=== PATIENT | male | born 1980 | race African-American/Black ===

== ENCOUNTER 2025-05-16 13:24 | Outpatient (REF) | payer BC, SELFPAY ==
[2025-05-16 18:30] LABS: MANUAL DIFF FLAG NO
[2025-05-16 19:14] LABS: Hemoglobin A1C 80.5067 umol/L
[2025-05-16 19:15] LABS: Alanine Aminotransferase 15 U/L (0-40); Albumin Level 4.2 g/dL (3.5-5.0); Alkaline Phosphatase 40 U/L (39-117); Anion Gap 10 (12-20); Aspartate Amino Transferase 29 U/L (5-37); Blood Urea Nitrogen 11 mg/dL (9-16); Calcium 9.4 mg/dL (8.4-10.2); Carbon Dioxide 29 mmol/L (22-29); Chloride 105 mmol/L (96-108); Cholesterol 168 mg/dL (<200); Estimated Glomerular Filt Rate > 60; HDL Cholesterol 38 mg/dL (>40); Magnesium 2.1 mg/dL (1.6-2.6); Potassium 4.0 mmol/L (3.3-5.1); Sodium 140 mmol/L (135-145); Total Protein 7.7 g/dL (6.5-8.0); Triglycerides 105 mg/dL (<150)
[2025-05-16 19:18] LABS: Hematocrit 45.4 % (42.0-52.0); Hemoglobin 14.7 g/dl (14.0-18.0); Imm Gran Abs Auto 0.03 X10*3/uL (0.00-0.03); Imm Gran Pct Auto 0.4 % (0.0-0.4); Lymphocytes Absolute Auto 2.7 X10*3/uL (1.2-4.9); Mean Corpuscular HGB Conc 32.4 g/dl (31.0-36.0); Mean Corpuscular Hemoglobin 28.7 pg (27.0-33.0); Mean Corpuscular Volume 88.7 fL (80.0-98.0); NRBC Abs Auto 0.000 X10*3/uL (0.0-0.012); NRBC Pct Auto 0.0 /100WBC (0.0-0.2); Platelet Count 176 X10*3/uL (160-400); Red Blood Count 5.12 X10*6/uL (4.60-5.80); White Blood Count 8.3 X10*3/uL (4.8-10.8)
[2025-05-16 19:32] LABS: Folate 5.8 ng/mL (> or = 4.0); Vitamin B12 486 pg/mL (200-900)
[2025-05-17 06:34] LABS: Syphilis Screen Nonreactive (Nonreactive)
[2025-05-17 07:00] LABS: HBS Num1 3.13 mIU/mL (0-7.99); HBsAGNum1 0.45 S/CO (0.00-0.99); HIV Num 1 0.06 S/CO (0.00-0.99); Hepatitis B Surface Antigen Negative (Negative); ~HepC Num1 0.23 S/CO (0.00-0.79); ~Hepatitis B Surface Antibody NONREACTIVE (Nonreactive); ~Hepatitis C Antibody Nonreactive (Nonreactive)
[2025-05-20 14:23] LABS: VITAMIN D (1,25 OH) D3 68 pg/mL; Vit D (1,25-Dihydroxy) Total 68 pg/mL (18-72); Vitamin D (1,25 OH) D2 <8 pg/mL
== END 2025-05-16 13:25 | disposition home or self-care (01) ==
LOC: HO.HKASLDS 13:24
PROVIDERS: PCP Student in an Organized Health Care Education/Training Program; Visit Provider Student in an Organized Health Care Education/Training Program
DX: Z13.9 Encounter for screening, unspecified (principal); F41.9 Anxiety disorder, unspecified; E11.9 Type 2 diabetes mellitus without complications; F10.11 Alcohol abuse, in remission; E66.812 Obesity, class 2; Z68.36 Body mass index [BMI] 36.0-36.9, adult
CPT/HCPCS: 36415; 80053; 80061; 82607; 82652; 82746; 83036; 83735; 84443; 85025; 86706; 86780; 86803; 87340; 87389; 96127

== ENCOUNTER 2025-05-16 13:24 | Outpatient (AMB) | payer BC, SELFPAY ==
--- NOTE | 2025-05-16 13:27 | A.OFFPC_ITS ---
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 Intake Note: New patient presents with mental health problems Cotton Machine Operator Required: No Accompanied by: Self / Same As Patient Allergies No Known Allergies Allergy (Verified 05/16/25 13:32) Tobacco use date assessed: 05/16/25 Dental Screening Dental Screen Date: 05/16/25 Did you have a dental visit in the last 12 months?: No Did you have a dental problem in the last 6 months where you did not have access to dental care?: No Was dental information given to patient?: Patient has dentist HPI HPI Comments History of Present Illness Details History of Present Illness The patient is a 44 year old individual presenting to [facility] care with a new primary care provider and for medication refills. 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 Due to the anxiety, the patient attended a 30-45 day mental health and substance use treatment program at [facility], where the patient was prescribed gabapentin 600 mg, hydroxyzine (Vistaril) 50 mg, and buspirone 20 mg. The patient's previous primary care physician refused to refill these prescriptions, necessitating a return to the program for another 30-day supply. The patient also takes Seroquel 200 mg at night, which in combination with gabapentin, helps with sleep. Type 2 Diabetes Mellitus and Obesity: The patient was diagnosed with type 2 diabetes with an initial A1c of approximately 11. The patient has been on Mounjaro (tirzepatide) for over a year, and the last A1c was 4.8. This medication has also facilitated weight loss from a starting weight of 290 pounds to a current weight of 249 pounds, with a goal weight of approximately 225 pounds. History of Bilateral Compartment Syndrome: The patient has a surgical history of bilateral upper extremity compartment syndrome. This occurred after a fall at home where the patient broke a toe and bruised a hip, rendering the patient unable to get off the floor for approximately 10 hours, from 8 p.m. to 6 a.m. The prolonged position on the floor led to the development of compartment syndrome in both arms, requiring surgical intervention which left scars on the bilateral triceps. History of Alcohol Abuse: The patient reports a history of problematic alcohol use. The patient has previously been in treatment for it and tried medications, which were not effective. The patient also tried AA meetings but did not find them helpful. The patient is now abstinent for approximately 10.5 months and manages this by staying busy. Surgical History: - Bilateral upper extremity fasciotomy f or compartment syndrome. Medications: - Buspirone 10 mg twice daily for anxiet y. - Gabapentin 600 mg three times daily fo r anxiety and sleep. - Hydroxyzine 50 mg twice daily for anxi ety. - Seroquel (quetiapine) 200 mg at bedtim e for sleep. - Mounjaro (tirzepatide) 12.5 mg subcuta neous injection once weekly for type 2 diabetes and weight loss. Social History: - Employment: The patient works in [employer] at a [employer] facility and has been in this role for 15 years. - Substance Use: Denies smoking. - Alcohol Use: Reports a history of prob lematic alcohol use but has been abstinent for approximately 10.5 months. Family History: - Grandfather had high blood pressure an d from it. - No family history of colon cancer at a young age. Diagnostic Results: - Hemoglobin A1c: 4.8% (most recent). - Hemoglobin A1c: Approximately 11 (at t armando of diagnosis). Past Medical History - Anxiety disorder - Type 2 diabetes mellitus - History of alcohol abuse - History of fall resulting in a broken fourth toe and bruised hip Health Maintenance - Order comprehensive laboratory studies , including a complete blood count, comprehensive metabolic panel, magnesium, calcium, hemoglobin A1c, HIV screen, lipid panel, syphilis screen, TSH, urinalysis, vitamin B12, folate, and vitamin D. - The patient has been instructed to hav e bloodwork drawn today. - Request medical records from the fabien villagomez's previous primary care provider and the [facility] facility. - Schedule a follow-up appointment in tw o weeks to review lab results and adjust the care plan as needed. - Discussed that colon cancer screening is recommended at age 45. [facility] Medical History (Updated 05/19/25 @ 11:42 by Stan Brush MD) Class 2 obesity History of alcohol abuse Diabetes type 2 Anxiety disorder Compartment syndrome Surgical History (Updated 05/16/25 @ 13:43 by Noah Ya CMA) H/O fasciotomy Family History (Updated 05/16/25 @ 13:37 by Noah Ya CMA) Maternal Grandfather Substance abuse Paternal Grandfather Hypertension Mother Diabetes Social History (Updated 05/16/25 @ 13:40 by Noah Ya CMA) Housing: House Alcohol intake: current Patient Tobacco Use Status: Never used Tobacco e-Cigarette/Vaping Use: Never Used Second Hand Smoke Exposure: No service: No Current occupational status: employed 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 1. Little interest or pleasure in doing things: not at all 2. Feeling down, depressed, or hopeless: not at all 3. Trouble falling or staying asleep, or sleeping too much: not at all 4. Feeling tired or having little energy: not at all 5. Poor appetite or overeating: not at all 6. Feeling bad about yourself - or that you are a failure or have let yourself or your family down: not at all 7. Trouble concentrating on things, such as reading the newspaper or watching television: not at all 8. Moving or speaking so slowly that other people could have noticed. Or the opposite - being so fidgety or restless that you have been moving around a lot more than usual: not at all 9. Thoughts that you would be better off or of hurting yourself in some way: not at all Total score: 0 Depression Screening Interpretation: Negative Depression Screening Done: Yes 06004 - PHQ-9 Billing: Yes Source: Developed by Drs. Baldemar Strickland, Elsy Quintero, Marcelo Chatman and colleagues, with an educational gurjit from [employer]. Thrive Questionnaire Date Thrive assessed: 05/16/25 I am a: Patient What is your living situation today?: I have a steady place to live Within the past 12 months, did the food you bought not last and you didn't have the money to get more?: Never true Within the past 12 months, did you worry whether your food would run out before you got money to buy more?: Never true Do you have trouble paying for medicines?: No Do you have trouble getting transportation to medical appointments?: No Do you have trouble paying your heating and electricity bill?: No Do you have trouble taking care of your child, family member or friend?: No Do you have trouble with day-to-day activities such as bathing, preparing meals, shopping, managing finances, etc.?: No Are you currently unemployed and looking for a job?: No Are you interested in more education?: No Please select the resources that you would like help with: None Currently or been in a relationship where the following occur: No concerns reported THRIVE Score: 0 AUDIT C Alcohol Use Questionnaire (AUDIT-C) 1. How often do you have a drink containing alcohol?: Never Total Score: 0 SUKHJINDER-7 AMB Questionnaire SUKHJINDER-7 Date SUKHJINDER - 7 assessed: 05/16/25 Feeling nervous, anxious, or on edge: 0 = Not at all Not being able to stop or control worryin = Not at all Worrying too much about different things: 0 = Not at all Trouble relaxin = Not at all Being so restless that it is hard to sit still: 0 = Not at all Becoming easily annoyed or irritable: 0 = Not at all Feeling afraid as if something awful might happen: 0 = Not at all Total SUKHJINDER-7 score (0-4 normal; 5-9 mild; 10-14 moderate; 15-21 severe): 0 Source: Developed by Drs. Baldemar Strickland, Elsy Quintero, Marcelo Chatman and colleagues, with an educational gurjit from [employer]. SUKHJINDER-7 Assessment Billing SUKHJINDER-7 Assessment Tool: SUKHJINDER-7 Assessment 21586 Review of Systems Narrative Review of Systems - General: Reports significant weight loss. - Psychiatric: Reports history of severe anxiety attacks. - Sleep: Reports improved sleep with medication. - Musculoskeletal: Denies any current pain. - Cardiovascular: Denies swelling in the legs. - Genitourinary: Reports normal urinary function. - Allergies: Denies any known allergies. 10-point ROS reviewed and negative except as noted in HPI Physical exam (Primary Care) Vital Signs: Last Vital Signs Temp 98.2 F 05/16/25 13:37 Pulse 82 05/16/25 13:37 Resp 16 05/16/25 13:37 BP 130/74 05/16/25 13:37 Pulse Ox 96 05/16/25 13:37 Oxygen Delivery Method Room Air 05/16/25 13:37 BMI result Body Mass Index 36.8 Tobacco/Smoking Status: Tobacco use Status Tobacco use date assessed 05/16/25 05/16/25 13:39 Patient Tobacco Use Status Never used Tobacco 05/16/25 13:40 e-Cigarette/Vaping Use Never Used 05/16/25 13:39 PHQ-9: PHQ-9 Score PHQ-9: Total score 0 05/16/25 13:40 Depression Screening Interpretation: Negative Thrive Assessment: Date of Thrive Assessment Date Thrive assessed 05/16/25 05/16/25 13:29 Currently or been in a relationship where the following occur: No concerns reported Narrative Physical Exam General: Well-appearing, in no acute distress. Vital signs: Within normal limits. HEENT: Normocephalic, atraumatic. PERRLA, EOMI. Conjunctiva clear, sclera anicteric. Oropharynx clear, mucous membranes moist. TMs intact bilaterally. Neck: Supple, no lymphadenopathy, no thyromegaly, no JVD or carotid bruits. Cardiovascular: RRR, normal S1/S2, no murmurs, rubs, or gallops. Peripheral pulses 2+ and symmetric. No edema. Respiratory: Lungs clear to auscultation bilaterally, no wheezes, rales, or rhonchi. Normal effort. Abdomen: Soft, non-tender, non-distended. Normoactive bowel sounds. No hepatosplenomegaly, no masses. MSK: Full range of motion, no joint swelling or deformity. Normal gait. Skin: Warm, dry, intact. No rashes, lesions, or pallor. Neuro: Alert and oriented x3. Cranial nerves II-XII intact. Strength 5/5 thro ughout. Sensation intact. Reflexes 2+ symmetric. Normal coordination and gait. Psych: Appropriate mood and affect. Normal judgment and insight. Coding Level of Care Code New Pt Level 4 (11404) Diagnoses Anxiety disorder F41.9 Diabetes type 2 E11.9 History of alcohol abuse F10.11 Class 2 obesity E66.812 Additional Codes SUKHJINDER-7 Assessment Billing - SUKHJINDER-7 Assessment Tool: SUKHJINDER-7 Assessment 51701 ([id number]) PHQ-9 - 02423 - PHQ-9 Billing: Yes ([id number]) Assessment & Plan Assessment & Plan (1) Anxiety disorder: Code(s): F41.9 - Anxiety disorder, unspecified Category: Medical (2) Diabetes type 2: Code(s): E11.9 - Type 2 diabetes mellitus without complications Category: Medical (3) History of alcohol abuse: Code(s): F10.11 - Alcohol abuse, in remission Category: Medical (4) Class 2 obesity: Code(s): E66.812 - Obesity, class 2 Category: Medical Plan Consent The patient provided verbal consent for comprehensive lab work after a discussion of the testing plan. The patient also consented to the release of me dical records from the previous primary care provider and the [facility] facility. Patient was informed and verbally consented to the use of an ambient scribe for clinic note documentation during this visit. Plan 1. Anxiety Disorder - Continue current medications for anxiety management. - Refill buspirone for a 3-month supply. - Refill gabapentin for a 3-month supply. - Refill hydroxyzine for a 3-month supply. - Refill Seroquel 200 mg for a 3-month supply. - The patient will continue to utilize mental health services provided through the patient's job at [employer] [facility] as needed. 2. Type 2 Diabetes Mellitus / Obesity - Given the excellent glycemic control with an A1c of 4.8, the patient will continue Mounjaro (tirzepatide). - To support further weight loss towards the patient's goal of 225 pounds, the dose of tirzepatide will be increased from 12.5 mg to 15 mg weekly. - The prescription for tirzepatide 15 mg will be sent to the [facility] in [place]. Discussion Notes I discussed with the patient that I would be taking over as the patient's primary care provider. I explained the importance of obtaining medical records from the patient's previous providers to ensure continuity of care and had the patient sign release forms. We reviewed the current medication list, and I confirmed that I would refill the prescriptions for anxiety (buspirone, gabapentin, hydroxyzine, Seroquel). We also discussed the Mounjaro (tirzepatide) for type 2 diabetes and weight management, and I agreed to the patient's request to increase the dose to 15 mg weekly to aid in reaching the patient's weight goal. I outlined the plan to order a comprehensive set of baseline labs and instructed the patient to have them drawn today. Finally, I advised the patient to schedule a follow-up appointment in two weeks to review the lab results. Patient Instructions - Please sign the release of information forms so we can request your medical records from your previous doctor and the [facility] facility. - Go to the lab to have your blood drawn today. - I have sent 3-month refills for your buspirone, gabapentin, hydroxyzine, and Seroquel to your pharmacy. - I have increased your Mounjaro (tirzepatide) dose to 15 mg once a week and sent the prescription to the [facility] in [place]. - Schedule a follow-up appointment to see me in two weeks to go over your lab results. Medical Decision Making The patient is a 44-year-old individual presenting to establish care after the previous PCP was unwilling to continue necessary medications. The primary concerns are management of anxiety and type 2 diabetes with associated obesity. For anxiety, the patient is on a stable, multimodal regimen (buspirone, gabapentin, hydroxyzine, Seroquel) initiated by a mental health facility. Given the patient reports benefit and the non-controlled nature of these medications, it is clinically appropriate to continue them to ensure stability while awaiting formal records. The patient has established access to specialized care via the patient's employer, which the patient prefers to maintain. Regarding type 2 diabetes, the patient has achieved remission with a recent HbA1c of 4.8 on tirzepatide 12.5 mg weekly, which also addresses the patient's obesity. The patient desires further weight loss, and an increase to the 15 mg dose of tirzepatide is a logical next step to support this goal. A comprehensive panel of labs was ordered to establish a baseline for this new patient, assess for any medication side effects, and monitor metabolic health. A two-week follow-up is scheduled to review these results and make any necessary adjustments to the treatment plan. Total Time Statement 30 min Total time spent caring for the patient today includes pre-visit chart review, documentation, review of laboratory and diagnostic imaging results, medication reconciliation, medically necessary evaluation, counseling on diagnoses, care coordination, ordering appropriate tests and medications, review of tests performed by other providers, reporting test results to the patient, and communication with other healthcare providers. Orders: Orders Complete Blood Count Auto Diff 05/16/25 Z13.9 - Encounter for screening, unspecified Syphilis Screen 05/16/25 Z13.9 - Encounter for screening, unspecified Hepatitis C Antibody 05/16/25 Z13.9 - Encounter for screening, unspecified UA CC w/rflx Micro + Cult 05/16/25 Z13.9 - Encounter for screening, unspecified Lipid Panel 05/16/25 Z13.9 - Encounter for screening, unspecified Vitamin B12 and Folate 05/16/25 Z13.9 - Encounter for screening, unspecified Hemoglobin A1c 05/16/25 Z13.9 - Encounter for screening, unspecified Hepatitis B Surface Antigen 05/16/25 Z13.9 - Encounter for screening, unspecified Comprehensive Met. Panel 05/16/25 Z13.9 - Encounter for screening, unspecified TSH reflex Free T4 05/16/25 Z13.9 - Encounter for screening, unspecified CT NG by PCR Urine 05/16/25 Z13.9 - Encounter for screening, unspecified HIV Ab/Ag 05/16/25 Z13.9 - Encounter for screening, unspecified Magnesium 05/16/25 Z13.9 - Encounter for screening, unspecified Vitamin D 1,25 dihydroxy 05/16/25 Z13.9 - Encounter for screening, unspecified Hepatitis B Surface Antibody 05/16/25 Z13.9 - Encounter for screening, unspecified Medications: New gabapentin 600 mg PO TID 240 tabs 0RF tirzepatide (Mounjaro) 15 mg (0.5 mL) subcut QWEEK 2 mL 0RF buspirone 10 mg PO BID 180 tabs 0RF hydroxyzine pamoate 50 mg PO BID 180 caps 0RF quetiapine (Seroquel) 200 mg PO BEDTIME 90 tabs 0RF
[2025-05-16 13:37] VITALS: BP 130/74; PULSE 82; RESP 16; TEMP 36.8; O2SAT 96; BMI 36.8
--- OUTSIDE RECORDS SUMMARY | 2025-05-16 15:57 | XMS_ITS | Clinical Summary ---
Author Organization [facility] Address [address] [place] [address] Care Team Providers Care Independent Jeweler Name Role Phone Ilya Maloney MD Primary Care Provider [phone] Social History Tobacco Use Types Packs/Day Years Used Date Smoking Tobacco: Never Assessed Sex and Gender Information Value Date Recorded Sex Assigned at Not on file Legal Sex Male 12:17 PM EDT Gender Identity Not on file Sexual Orientation Not on file Plan of Treatment Health Maintenance Due Date Last Done Comments Hepatitis C Screening 1981 DTaP/Tdap/Td (1 - Tdap) 1999 Hep B (1 of 3 - 19+ 3-dose series) 2000 COVID-19 Vaccine (1 - 2024-2 6 season) 2025 Influenza (#1) 2025 Zoster (Shingrix) (1 of 2) 2031 Chest Imaging Discontinued 12/03/2024, 03/29/2022, 03/29/2022 HPV Vaccine (No Doses Required) Completed Hep A Aged Out No longer eligi ble based on patient's age to complete this topic Hib Aged Out No longer eligi ble based on patient's age to complete this topic Meningococcal ACWY Aged Out No longer eligible based on patient's age to complete this topic Pneumococcal Aged Out No longer eligi ble based on patient's age to complete this topic Care Teams Independent Jeweler Relationship Specialty Start Date End Date Ilya Maloney MD [address] [place] [id number] PCP - General 01/18/23
--- OUTSIDE RECORDS SUMMARY | 2025-05-16 15:57 | XMS_ITS | Clinical Summary ---
Author Organization [facility] Address [address] [id number] Care Team Providers Care After School Program Director Name Role Phone Kaden Alamo MD Primary Care Provider [phone] Allergies No known active allergies Social History Tobacco Use Types Packs/Day Years Used Date Smoking Tobacco: Never Smokeless Tobacco: Never Tobacco Cessation:Counseling Given: Not Answered Alcohol Use Standard Drinks/Week Comments Yes 0 (1 standard drink = 0.6 oz pur e alcohol) 24 hours sober Sex and Gender Information Value Date Recorded Sex Assigned at Not on file Legal Sex Male 3:10 AM EDT Gender Identity Not on file Sexual Orientation Not on file Last Filed Vital Signs Vital Sign Reading Time Taken Comments Blood Pressure 150/100 03/29/2022 1:18 PM EDT Pulse 112 03/29/2022 1:18 PM EDT Temperature 36.9 C (98.4 F) 03/29/2022 3:32 AM EDT Respiratory Rate 18 03/29/2022 1:18 PM EDT Oxygen Saturation 99% 03/29/2022 10:10 AM EDT Inhaled Oxygen Concentration - - Weight 117.9 kg (260 lb) 03/29/2022 3:32 AM EDT Height 177.8 cm (5' 10 ) 03/29/2022 3:32 AM EDT Body Mass Index 37.31 03/29/2022 3:32 AM EDT Plan of Treatment Health Maintenance Due Date Last Done Comments HIV Screening 1981 Varicella Vaccines (1 of 2 - 13+ 2-dose series) 1994 Hepatitis B Vaccines (1 of 3 - 19+ 3-dose series) 2000 DTaP,Tdap,and Td Vaccines (1 - Tdap) 2003 Alcohol/Substance Use Screening 06/14/2024 Influenza Vaccine (#1) 2025 COVID-19 Vaccine (1 - 2024-2 6 season) 2025 Pneumococcal Vaccine: Pediat bryanna (0-5 Years) and At-Risk Patients (6-50 Years) Aged Out No longer eligible b ased on patient's age to complete this topic Insurance BCBS OUT OF STATE PPO Care Teams After School Program Director Relationship Specialty Start Date End Date Kaden Alamo MD [address] [place] [id number] PCP - General Internal Medicine 03/28/22
--- OUTSIDE RECORDS SUMMARY | 2025-05-16 15:57 | XMS_ITS | Patient Health Record ---
Author Organization [facility] Address [address] [place] [address] Care Team Providers Care Marine Steward Name Role Phone Marcello Alamo MD Primary Care Provider Unavail able Abraham Sevilla Unavailable [phone] Allergies No Known Allergies Reason For Referral No Information Medications Medication SIG (Take, Route, Frequency, Duration) Notes Start Date End Date Status Lisinopril 20 MG 1 tablet Orally Once a day; Duration: 30 day(s) Active metFORMIN HCl 500 MG 1 tablet with a emanuel l Orally Once a day; Duration: 30 day(s) Active Escitalopram Oxalate 5 MG 1 tablet Orall y Once a day; Duration: 30 day(s) Active hydroCHLOROthiazide 25 MG 1 tablet in th e morning Orally Once a day; Duration: 30 day(s) Active Work Note . . . patient must be allowed to wear athletic shoes to work until further notice Active Voltaren 1 % as directed Externally Active Naltrexone HCl 50 MG 1 tablet Orally Onc e a day; Duration: 30 day(s) Active Immunizations Vaccine Route Administration Date Status Comme nts COVID-19 Mahendra & Mahendra/Kameron Unknown 11/14/2020 A dministered Social History Tobacco Use: Social History Observation Description Date Details (start date - stop date) Never Smoker NA - NA Tobacco Use/Smoking Question Answer Notes Are you a: nonsmoker Additional Findings: Tobacco Non-User Current no n-smoker Alcohol Screen Question Answer Notes Did you have a drink contain ing alcohol in the past year? Yes How often did you have a dri nk containing alcohol in the past year? 4 or more times a week (4 points) Points 4 Interpretation Positive Tobacco use other than smoking: Question Answer Notes Are you an other tobacco user? No Problems Problem Type SNOMED Code ICD Code Onset Dates Problem Status W/U Status Risk Notes Problem Acquired hallux valgus (36918217) Hallux valgus (acquired), left foot (M20.12) Active confirmed Problem Acquired hallux valgus (65708311) Hallux valgus (acquired), right foot (M20.11) Active confirmed Problem Acquired hallux rigidus (7936679) Hallux rigidus, left foot (M20.22) Active confirmed Problem Acquired hallux valgus (65918809) Hallux valgus (acquired), right foot (M20.11) Active confirmed Problem Acquired hallux rigidus (5908633) Hallux rigidus, right foot (M20.21) Active confirmed Plan Of Treatment Pending Test Test Name Order Date X ray : Foot, left 3V 07/30/2020 X ray : Foot, right 3V 07/30/2020 [id number], [id number], JOINT/BURSA 0 12/09/2020 Insurance Providers Payer Name Payer Address Payer Phone Subscriber Number Group Number Insured Name Patient Relationship to Insured Coverage Start Date Coverage End Date [facility] [address] [place] [address] [id number] Matty Guerrero Self - patient is the insured Medical (General) History Medical History History ICD Code Broken bones Chicken pox Diabetes mellitus High blood pressure Surgical History Surgery Date(Month/Year) hernia 2008 Compartment syndrome 03/05/20
--- OUTSIDE RECORDS SUMMARY | 2025-05-16 15:57 | XMS_ITS | Clinical Summary ---
Author Organization [facility] Address [address] [place] [address] Care Team Providers Care Mercerizer Machine Operator Name Role Phone Marcello Alamo MD Primary Care Provider [phone] Medical History Medical History Date Comments HTN (hypertension) DX:HTN (hyper tension) Diabetes (CMS/HCC V24, CMS/HCC V28) DX:Diabetes (HCC) Atrial fibrillation (CMS/HCC V24, CMS/HCC V28) DX:Atrial fibrillation (HCC) Family History Relation Name Status Comments Father Alive Mother Alive Social History Tobacco Use Types Packs/Day Years Used Date Smoking Tobacco: Never Smokeless Tobacco: Never Alcohol Use Standard Drinks/Week Comments No 0 (1 standard drink = 0.6 oz pur e alcohol) Sex and Gender Information Value Date Recorded Sex Assigned at Not on file Legal Sex Male 10:41 AM EST Gender Identity Not on file Sexual Orientation Not on file Obstetrics History Plan of Treatment Health Maintenance Due Date Last Done Comments DTaP,Tdap,and Td Vaccines (1 - Tdap) 2000 Hepatitis B Vaccines (1 of 3 - 19+ 3-dose series) 2000 HPV Vaccines (1 - 3-dose SCD M series) 2008 Cholesterol Screening (Lipid Panel) 05/12/2022 HIV Screening 05/12/2022 Hepatitis C Screening 05/12/2022 Social Influencers of Health Screening 05/12/2022 Depression Screening 06/14/2024 COVID-19 Vaccine ( - 2024-2 6 season) 2025 Influenza Vaccine (#1) 2025 RSV Immunization Adult Patie nts (1 - 1-dose 75+ series) 2056 HIB Vaccines Aged Out No longer eligi ble based on patient's age to complete this topic Hepatitis A Vaccines Aged Out No long er eligible based on patient's age to complete this topic IPV Vaccines Aged Out No longer eligi ble based on patient's age to complete this topic MMR Vaccines Aged Out No longer eligi ble based on patient's age to complete this topic Meningococcal ACWY Vaccine Aged Out N o longer eligible based on patient's age to complete this topic Meningococcal B Vaccine Aged Out No l onger eligible based on patient's age to complete this topic Pneumococcal Vaccine: Pediat rics (0 to 5 Years) and At-Risk Patients (6 to 49 Years) Aged Out No longer eligible b ased on patient's age to complete this topic RSV Immunization Patients Un lynn 20 months Aged Out No longer eligible b ased on patient's age to complete this topic Varicella Vaccines Aged Out No longer eligible based on patient's age to complete this topic Care Teams Mercerizer Machine Operator Relationship Specialty Start Date End Date Marcello Alamo MD PCP - General Internal Medicine 03/11/20
== END 2025-05-16 14:11 | disposition home or self-care (01) ==
LOC: HO.HMCFMS 13:25
PROVIDERS: PCP Student in an Organized Health Care Education/Training Program; Visit Provider Student in an Organized Health Care Education/Training Program
DX: F41.9 Anxiety disorder, unspecified (principal); E11.9 Type 2 diabetes mellitus without complications; F10.11 Alcohol abuse, in remission; E66.812 Obesity, class 2

== ENCOUNTER 2025-05-31 10:53 | Outpatient (AMB) | payer BC, SELFPAY ==
--- NOTE | 2025-05-31 10:55 | A.OFFPC_ITS ---
Vital Signs 05/31/25 10:58 Height 5 ft 9 in Weight 239 lb 2 oz BMI 35.3 BP 119/72 Blood Pressure Location Lt brachial Position Sitting Respiration 16 Pulse 78 Pulse Source Pulse Oximeter Temp 97.5 F Temp Source Oral Pulse Oximetry (%) 99 Oxygen Delivery Method Room Air Intake Visit Reasons: 2 wk - lab review Intake Note: Patient present for lab review. Accompanied by: Self / Same As Patient Allergies No Known Allergies Allergy (Verified 05/31/25 10:57) Medication List - Last Reconciled 06/02/25 by Stan Brush MD buspirone 10 mg PO BID gabapentin 600 mg PO TID hydroxyzine pamoate 50 mg PO BID quetiapine (Seroquel) 200 mg PO BEDTIME tirzepatide (Mounjaro) 15 mg (0.5 mL) subcut QWEEK Tobacco use date assessed: 05/16/25 Dental Screening Dental Screen Date: 05/16/25 HPI HPI Comments History of Present Illness Details History of Present Illness The patient is a 45 year old male presenting for a review of recent lab results. Elevated LDL cholesterol: Recent lab work showed an LDL cholesterol level of 109, which is above the targ et of less than 100. His total cholesterol was 160 and triglycerides were 105. The patient reports a diet that includes cheese. Mild hyperbilirubinemia: A recent lab finding indicated a total bilirubin level of 1.6, which is slightly elevated. His other liver enzymes were noted to be normal. Medications: - Tirzepatide - Seroquel (quetiapine) - Hydroxyzine - Gabapentin - Buspirone Social History: - Diet: The patient's diet includes ganesh se and eggs, which were discussed as potential contributors to his elevated LDL cholesterol. Diagnostic Results: - Complete Blood Count: White blood cell s, red blood cells, hemoglobin, and platelets are normal. - Comprehensive Metabolic Panel: Sodium, potassium, and renal function are normal. - Glucose: Random glucose and Hemoglobin A1c (5.0) are normal, indicating no prediabetes or diabetes. - Liver Function Tests: Total bilirubin is slightly elevated at 1.6; other liver enzymes are normal. - Electrolytes: Calcium and magnesium ar e normal. - Lipid Panel: Triglycerides are 105 (go al <150), total cholesterol is 160 (goal <200), and LDL cholesterol is 109 (goal <100). - Vitamins: Vitamin B12 is 466 (normal r kaushal 200-900) and Vitamin D is normal. - Thyroid function: Normal. - Folate: Normal. - Infectious Disease Screening: Syphilis , hepatitis B, hepatitis C, and HIV tests are negative. Past Medical History Health Maintenance - The patient's lab work was reviewed, w ith results indicating he is not prediabetic or diabetic. - Screening for syphilis, hepatitis B, h epatitis C, and HIV were negative. - Dietary modifications were discussed t o manage a mildly elevated LDL cholesterol level, including reducing intake of cheese and eggs. 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 Current occupational exposures/hazards: No Cognitive needs: No Hearing needs: No Vision needs: No Questionnaire Thrive Questionnaire Date Thrive assessed: 05/16/25 I am a: Patient What is your living situation today?: I have a steady place to live Within the past 12 months, did the food you bought not last and you didn't have the money to get more?: Never true Within the past 12 months, did you worry whether your food would run out before you got money to buy more?: Never true Do you have trouble paying for medicines?: No Do you have trouble getting transportation to medical appointments?: No Do you have trouble paying your heating and electricity bill?: No Do you have trouble taking care of your child, family member or friend?: No Do you have trouble with day-to-day activities such as bathing, preparing meals, shopping, managing finances, etc.?: No Are you currently unemployed and looking for a job?: No Are you interested in more education?: No Please select the resources that you would like help with: None Currently or been in a relationship where the following occur: No concerns reported THRIVE Score: 0 SUKHJINDER-7 AMB Questionnaire SUKHJINDER-7 Date SUKHJINDER - 7 assessed: 05/16/25 Source: Developed by Drs. Baldemar Strickland, Elsy Quintero, Marcelo Chatman and colleagues, with an educational gurjit from [employer] (formerly [employer]). Review of Systems Narrative Review of Systems - General: Denies any concerns. 10-point ROS reviewed and negative except as noted in HPI Physical exam (Primary Care) Vital Signs: Last Vital Signs Temp 97.5 F 05/31/25 10:58 Pulse 78 05/31/25 10:58 Resp 16 05/31/25 10:58 BP 119/72 05/31/25 10:58 Pulse Ox 99 05/31/25 10:58 Oxygen Delivery Method Room Air 05/31/25 10:58 BMI result Body Mass Index 35.3 Tobacco/Smoking Status: Tobacco use Status Tobacco use date assessed 05/16/25 05/31/25 10:57 Patient Tobacco Use Status Never used Tobacco 05/31/25 10:58 e-Cigarette/Vaping Use Never Used 05/31/25 10:58 Thrive Assessment: Date of Thrive Assessment Date Thrive assessed 05/16/25 05/31/25 10:57 Currently or been in a relationship where the following occur: No concerns reported Narrative Physical Exam General: Well-appearing, in no acute distress. Vital signs: Within normal limits. HEENT: Normocephalic, atraumatic. PERRLA, EOMI. Conjunctiva clear, sclera anicteric. Oropharynx clear, mucous membranes moist. TMs intact bilaterally. Neck: Supple, no lymphadenopathy, no thyromegaly, no JVD or carotid bruits. Cardiovascular: RRR, normal S1/S2, no murmurs, rubs, or gallops. Peripheral pulses 2+ and symmetric. No edema. Respiratory: Lungs clear to auscultation bilaterally, no wheezes, rales, or rhonchi. Normal effort. Abdomen: Soft, non-tender, non-distended. Normoactive bowel sounds. No hepatosplenomegaly, no masses. MSK: Full range of motion, no joint swelling or deformity. Normal gait. Skin: Warm, dry, intact. No rashes, lesions, or pallor. Neuro: Alert and oriented x3. Cranial nerves II-XII intact. Strength 5/5 throughout. Sensation intact. Reflexes 2+ symmetric. Normal coordination and gait. Psych: Appropriate mood and affect. Normal judgment and insight. Patient is currently on tirzepatide, Seroquel, hydroxyzine, gabapentin, and buspirone. Coding Level of Care Code Est Pt Level 3 (72284) Add On Problem Visit Only Diagnoses Elevated LDL cholesterol level E78.00 Hyperbilirubinemia E80.6 Anxiety disorder F41.9 Class 2 obesity E66.812 Assessment & Plan Assessment & Plan (1) Elevated LDL cholesterol level: Code(s): E78.00 - Pure hypercholesterolemia, unspecified Category: Medical (2) Hyperbilirubinemia: Code(s): E80.6 - Other disorders of bilirubin metabolism Category: Medical (3) Anxiety disorder: Code(s): F41.9 - Anxiety disorder, unspecified Category: Medical (4) Class 2 obesity: Code(s): E66.812 - Obesity, class 2 Category: Medical Plan Consent Patient was informed and verbally consented to the use of an ambient scribe for clinic note documentation during this visit. Plan 1. Mild Hyperbilirubinemia - The patient's total bilirubin was noted to be slightly elevated at 1.6. - As other liver enzymes are normal, this finding is not immediately concerning. - Plan is to repeat liver function tests in six months for monitoring. 2. Elevated Ldl Cholesterol - The patient's LDL cholesterol is 109, which is slightly above the goal of under 100. - Recommended dietary modifications, specifically reducing intake of cheese and eggs, to help lower the LDL level. Discussion Notes I reviewed the patient's recent lab results with him. I informed him that his complete blood count, electrolytes, renal function, glucose, and hemoglobin A1c were all normal. I noted a slightly elevated total bilirubin of 1.6 but reassured him that this is not concerning since other liver enzymes are normal, and we will repeat the lab in six months. We discussed his LDL cholesterol of 109, which is slightly above the goal, and I recommended dietary changes, such as reducing cheese and egg intake. I confirmed that his vitamin levels, thyroid function, and infectious disease screenings were all normal. The patient confirmed he is continuing his current medications, and he denied having any questions or concerns. Patient Instructions - Your lab results are mostly normal. - Your bad cholesterol (LDL) is slightly high. - Please try to reduce your intake of cheese and eggs to help lower this. - One of your liver tests (bilirubin) was slightly elevated. - This is not a concern right now, and we will recheck it with a blood test in six months. - Continue taking your prescribed medications: tirzepatide, Seroquel, hydroxyzine, gabapentin, and buspirone. - All screenings for infections, including HIV and hepatitis, were negative. Medical Decision Making The patient is a 45-year-old male who presented for a review of recent lab work. The results were largely reassuring, with a normal CBC, CMP, and a hemoglobin A1c of 5.0 that rules out diabetes mellitus. A mild isolated elevation of total bilirubin to 1.6 was noted; with otherwise normal LFTs, the clinical significance is low, and monitoring with a repeat test in 6 months is a sufficient plan. The lipid panel revealed a mild LDL elevation to 109, and dietary modification focusing on reducing saturated fats from sources like cheese and eggs was recommended as the initial approach. All other results, including vitamin levels and infectious disease screening, were negative. The patient is stable on his current medication regimen. No acute medical issues were identified, and routine follow-up is appropriate. Total Time Statement 20 min Total time spent caring for the patient today includes pre-visit chart review, documentation, review of laboratory and diagnostic imaging results, medication reconciliation, medically necessary evaluation, counseling on diagnoses, care coordination, ordering appropriate tests and medications, review of tests performed by other providers, reporting test results to the patient, and communication with other healthcare providers.
[2025-05-31 10:58] VITALS: BP 119/72; PULSE 78; RESP 16; TEMP 36.4; O2SAT 99; BMI 35.3
--- OUTSIDE RECORDS SUMMARY | 2025-05-31 14:02 | XMS_ITS | Clinical Summary ---
Author Organization [facility] Address [address] [place] [address] Care Team Providers Care Supervisor Chemical Name Role Phone Marcello Alamo MD Primary Care Provider [phone] Medical History Medical History Date Comments HTN [...] age to complete this topic Care Teams Supervisor Chemical Relationship Specialty Start Date End Date Marcello Alamo MD PCP - General Internal Medicine 03/11/20
--- OUTSIDE RECORDS SUMMARY | 2025-05-31 14:02 | XMS_ITS | Patient Health Record ---
Author Organization [facility] [place] Address [address] [place] [address] Care Team Providers Care Sales Teacher Name Role Phone Marcello Alamo MD Primary Care Provider Unavail able Abraham Sevilla Unavailable [phone] Allergies No Known Allergies Reason For Referral [...] Status Risk Notes Problem Acquired hallux valgus (56656391) Hallux valgus (acquired), left foot (M20.12) Active confirmed Problem Acquired hallux valgus (50195907) Hallux valgus (acquired), right foot (M20.11) Active confirmed Problem Acquired hallux rigidus (6329720) Hallux rigidus, left foot (M20.22) Active confirmed Problem Acquired hallux valgus (17446962) Hallux valgus (acquired), right foot (M20.11) Active confirmed Problem Acquired hallux rigidus (8747134) Hallux rigidus, right foot (M20.21) Active confirmed Plan Of Treatment Pending Test Test Name Order Date X ray : Foot, left 3V 07/30/2020 X ray : Foot, right 3V 07/30/2020 [id number], [id number], JOINT/BURSA 0 12/09/2020 Insurance Providers Payer Name Payer Address Payer Phone Subscriber Number Group Number Insured Name Patient Relationship to Insured Coverage Start Date Coverage End Date [facility] [address] [place] [address] [phone] [id number] Matty Guerrero Self - patient is the insured Medical (General) History Medical History History ICD Code Broken bones Chicken pox Diabetes mellitus High blood pressure Surgical History Surgery Date(Month/Year) hernia 2008 Compartment syndrome 03/05/20
--- OUTSIDE RECORDS SUMMARY | 2025-05-31 14:02 | XMS_ITS | Clinical Summary ---
Author Organization [facility] Address [address] [id number] Care Team Providers Care Machine Repairer Maintenance Name Role Phone Kaden Alamo MD Primary Care Provider [phone] Allergies No known active allergies Social History [...] BCBS OUT OF STATE PPO Care Teams Machine Repairer Maintenance Relationship Specialty Start Date End Date Kaden Alamo MD [address] [place] [id number] PCP - General Internal Medicine 03/28/22
--- OUTSIDE RECORDS SUMMARY | 2025-05-31 14:02 | XMS_ITS | Clinical Summary ---
Author Organization [facility] Address [address] [place] [address] Care Team Providers Care Quality Supervisor Name Role Phone Ilya Maloney MD Primary Care Provider [phone] Social History Tobacco Use Types Packs/Day Years [...] age to complete this topic Care Teams Quality Supervisor Relationship Specialty Start Date End Date Ilya Maloney MD [address] [place] [id number] PCP - General 01/18/23
== END 2025-05-31 11:23 | disposition home or self-care (01) ==
LOC: HO.HMCFMS 10:53
PROVIDERS: PCP Student in an Organized Health Care Education/Training Program; Visit Provider Student in an Organized Health Care Education/Training Program
DX: E78.00 Pure hypercholesterolemia, unspecified (principal); E80.6 Other disorders of bilirubin metabolism; F41.9 Anxiety disorder, unspecified; E66.812 Obesity, class 2